=== PATIENT | female | born 1955 ===

== ENCOUNTER → 2022-12-25 | Outpatient (CLI) | payer MEDICARE, BC ==
[~2022-12-25] VITALS: Ht 154.9 cm; Wt 55.0 kg
[~2022-12-25] MED LIST: ALBU18HF12 IH; AMLO-258 PO; CARV25 PO; OMEP20 PO; PROM25SU10 PR; TEMA15CA PO; VENL-68 PO
[2022-12-25 10:11] VITALS: BP 133/73; PULSE 71; RESP 17; TEMP 98.5; O2SAT 99
== END | disposition home or self-care (01) ==
LOC: SRCNTR 09:48
PROVIDERS: ATTEND Internal Medicine Pulmonary Disease
DX: J47.9 Bronchiectasis, uncomplicated (principal); E11.9 Type 2 diabetes mellitus without complications; K21.9 Gastro-esophageal reflux disease without esophagitis; E21.3 Hyperparathyroidism, unspecified; Z79.899 Other long term (current) drug therapy; Z22.322 Carrier or suspected carrier of Methicillin resistant Staphylococcus aureus
CPT/HCPCS: G0463; Z7500

== ENCOUNTER → 2023-02-10 | Outpatient (CLI) | payer MEDICARE, BC ==
[~2023-02-10] VITALS: Ht 154.9 cm; Wt 54.0 kg
[~2023-02-10] MED LIST changes: +BENZ-227 PO
[2023-02-10 11:49] VITALS: BP 155/90; PULSE 61; RESP 21; O2SAT 96
== END | disposition home or self-care (01) ==
LOC: SRCNTR 11:12
PROVIDERS: ATTEND Internal Medicine Pulmonary Disease
DX: J47.9 Bronchiectasis, uncomplicated (principal); K21.9 Gastro-esophageal reflux disease without esophagitis; Z79.899 Other long term (current) drug therapy
CPT/HCPCS: G0463; Z7500